=== PATIENT | female | born 1955 | race Caucasian/White ===

== ENCOUNTER 2022-12-29 16:08 | Emergency (ER) | payer MEDICARE ==
[2022-12-29] MEDS ORDERED: Ondansetron 4 MG Tab.DIS PO ONE (16:23)
[2022-12-29 17:15] LABS: SODIUM,NA 141 mmol/L (138-146)
[2022-12-29 17:16] LABS: ANION GAP 11.8 mmol/L (5-15); CHLORIDE,CL 108 mmol/L (98-107); ESTIMATED GFR 49 mL/min (>=60)
[2022-12-29] MEDS ORDERED: Sodium Chloride 0.9% 1,000 ML IV ONE (17:32)
[2022-12-29] MEDS ORDERED: Iopamidol 612 MG/ML 100 ML Bottle IVPUSH ONE (17:36)
== END 2022-12-29 19:52 | disposition short-term general hospital (02) ==
LOC: VM.ED 16:08
DX: K80.18 Calculus of gallbladder with other cholecystitis without obstruction (principal); Z88.5 Allergy status to narcotic agent; Z79.899 Other long term (current) drug therapy
CPT/HCPCS: 74177; 80053; 96360; 99284; 99285; A9270; J7030; Q9967

== ENCOUNTER 2024-07-07 08:45 | Day surgery (SDC) | payer MEDICARE ==
[2024-07-07] MEDS: Lactated Ringers 1,000 ML IV SCH (09:02)
[2024-07-07] MEDS ORDERED: Propofol 200 MG/20 ML SDV ONE ×2 (09:44→10:16)
[2024-07-07] MEDS ORDERED: fentaNYL 100 MCG/2 ML SDV ONE (09:46)
[2024-08-04] MEDS ORDERED: Lactated Ringers 1,000 ML IV SCH (07:00)
== END 2024-07-07 12:42 | disposition home or self-care (01) ==
LOC: VM.SDS 08:45
PROVIDERS: ATTEND Family Medicine
DX: Z12.11 Encounter for screening for malignant neoplasm of colon (principal); D12.0 Benign neoplasm of cecum; D12.2 Benign neoplasm of ascending colon; D12.3 Benign neoplasm of transverse colon; D12.4 Benign neoplasm of descending colon; K63.5 Polyp of colon; R19.5 Other fecal abnormalities; E78.5 Hyperlipidemia, unspecified; I10 Essential (primary) hypertension; E66.01 Morbid (severe) obesity due to excess calories; G47.33 Obstructive sleep apnea (adult) (pediatric); Z79.899 Other long term (current) drug therapy; Z88.5 Allergy status to narcotic agent
CPT/HCPCS: 00811; 88305; J2704; J3010; J7120